=== PATIENT | male | born 1985 | race Caucasian/White ===

== ENCOUNTER 2016-12-02 17:16 | Inpatient (IN) | payer SELFPAY ==
[2016-12-02] MEDS ORDERED: Iohexol 240 (50 ml) PO STA (18:32)
[2016-12-02] MEDS ORDERED: Sodium Chloride 0.9% 1,000 ML IV ONE (18:32)
[2016-12-02 18:51] LABS: BASO % 0.3 % (0.0-2.0); EOS # 0.2 K/uL (0.0-0.7); EOS % 1.4 % (0.0-4.0); HEMOGLOBIN 13.9 g/dL (12.0-18.0); LYMPH # 3.2 K/uL (1.0-4.3); LYMPH % 30.1 % (20.0-40.0); MEAN CELL VOLUME 76.3 fL (80.0-94.0); MEAN CORPUSCULAR HEMOGLOBIN 25.4 pg (27.0-31.0); MEAN CORPUSCULAR HGB CONC 33.3 g/dL (33.0-37.0); MEAN PLATELET VOLUME 9.6 fL (7.2-11.7); MONO # 0.7 K/uL (0.0-0.8); MONO % 6.6 % (0.0-10.0); NEUT # 6.6 K/uL (1.8-7.0); NEUT % 61.6 % (50.0-75.0); NRBC % 0.3 % (0.0-2.0); RBC 5.47 Mil/uL (4.40-5.90); RED CELL DISTRIBUTION WIDTH 13.1 % (11.5-14.5); WHITE BLOOD COUNT 10.7 K/uL (4.8-10.8)
[2016-12-02 18:59] LABS: ALBUMIN 4.3 g/dL (3.5-5.0)
[2016-12-02 19:01] LABS: GFR AFRICAN-AMERICAN > 60; GFR NON-AFRICAN AMERICAN > 60
[2016-12-02 19:02] LABS: ALB/GLOB RATIO 1.3 (1.0-2.1); ALT/SGPT 40 U/L (21-72); AST/SGOT 20 U/L (17-59); BLOOD UREA NITROGEN 14 mg/dL (9-20); CALCIUM 8.4 mg/dl (8.6-10.4); LIPASE 57 U/L (23-300)
[2016-12-02] MEDS ORDERED: Iohexol 240 (50 ml) ONE (19:02)
[2016-12-02] MEDS ORDERED: Sodium Chloride 0.9% 1,000 ML ONE (19:02)
[2016-12-02 19:10] LABS: URINE BILIRUBIN NEGATIVE (NEGATIVE); URINE BLOOD NEGATIVE (NEGATIVE); URINE CLARITY Clear (Clear); URINE COLOR Yellow (YELLOW); URINE GLUCOSE (UA) NORMAL (Normal); URINE LEUKOCYTE ESTERASE NEG Leu/uL (Negative); URINE NITRATE NEGATIVE (NEGATIVE); URINE PROTEIN NEGATIVE (NEGATIVE); URINE UROBILINOGEN NORMAL mg/dL (0.2-1.0)
[2016-12-02] MEDS ORDERED: Iohexol 300 100 ML IJ ONE (20:00)
--- NOTE | 2016-12-02 21:02 | CT ---
EXAM: CT Abdomen and Pelvis With Intravenous Contrast CLINICAL HISTORY: 31 years old, male; Pain; Abdominal pain; Generalized; Additional info: Abd pain TECHNIQUE: Axial computed tomography images of the abdomen and pelvis with intravenous contrast. This CT exam was performed using one or more of the following dose reduction techniques: automated exposure control, adjustment of the mA and/or kV according to patient size, and/or use of iterative reconstruction technique. Coronal and sagittal reformatted images were created and reviewed. CONTRAST: 100 mL of omnipaque 300 administered intravenously. COMPARISON: No relevant prior studies available. FINDINGS: Lower thorax: Minimal atelectasis/scarring. ABDOMEN: Liver: Minimal periportal edema. Gallbladder and bile ducts: No calcified stones. No ductal dilation. Pancreas: No ductal dilation. No mass. Spleen: No splenomegaly. Adrenals: No mass. Kidneys and ureters: No mass. No hydronephrosis. Stomach and bowel: No definite mural thickening. No obstruction. Appendix: Enlarged appendix, measuring up to 1.4 cm in diameter. Mucosal enhancement. Minimal stranding about appendix. PELVIS: Bladder: Unremarkable. Reproductive: Unremarkable as visualized. ABDOMEN and PELVIS: Intraperitoneal space: No significant fluid collection. No free air. Bones/joints: Degenerative changes of lower thoracic spine with indentation thecal sac/cord. No acute fracture. Soft tissues: Unremarkable. Vasculature: Unremarkable. No aneurysm. Lymph nodes: No pathologically enlarged lymph nodes. IMPRESSION: 1. Acute appendicitis. 2. Incidental/non-acute findings are described above.
--- NOTE | 2016-12-02 21:39 | C.PDOC ---
History Of Present Illness Pt has been c/o LLQ pain on/off for months. He states that today the pain "moved " to the RLQ. Time Seen by Provider: 12/02/16 18:20 Chief Complaint (Nursing): Abdominal Pain History Per: Patient Onset/Duration Of Symptoms: Days (1) Current Symptoms Are (Timing): Still Present Severity: Moderate Location Of Pain/Discomfort: RLQ Quality Of Discomfort: "Pain" Alleviating Factors: None Additional History Per: Prior Records Past Medical History Reviewed: Historical Data, Nursing Documentation, Vital Signs Vital Signs: Last Vital Signs Temp 98 F 12/02/16 18:50 Pulse 66 12/02/16 18:50 Resp 20 12/02/16 18:50 BP 124/82 12/02/16 18:50 Pulse Ox 99 12/02/16 18:50 - Medical History PMH: No Chronic Diseases Surgical History: No Surg Hx Family History: States: Unknown Family Hx - Social History Hx Tobacco Use: No Hx Alcohol Use: No Hx Substance Use: No Review Of Systems Except As Marked, All Systems Reviewed And Found Negative. Constitutional: Negative for: Fever, Weakness Cardiovascular: Negative for: Chest Pain Respiratory: Negative for: Shortness of Breath Gastrointestinal: Positive for: Abdominal Pain. Negative for: Vomiting, Diarrhea Genitourinary: Negative for: Dysuria Musculoskeletal: Negative for: Neck Pain, Back Pain Skin: Negative for: Rash Neurological: Negative for: Weakness, Numbness, Seizures, Altered Mental Status Physical Exam - Physical Exam Appears: Non-toxic, No Acute Distress Skin: Normal Color, Warm, Dry, No Rash Head: Atraumatic, Normacephalic Eye(s): bilateral: Normal Inspection, PERRL, EOMI Neck: Normal ROM, Supple Cardiovascular: Rhythm Regular Respiratory: Normal Breath Sounds, No Accessory Muscle Use Gastrointestinal/Abdominal: Soft, Tenderness (RLQ) Back: No CVA Tenderness, No Vertebral Tenderness Extremity: Normal ROM Neurological/Psych: Oriented x3, Normal Motor, Normal Sensation ED Course And Treatment - Laboratory Results Result Diagrams: 12/02/16 18:48 12/02/16 18:48 Lab Interpretation: No Acute Changes O2 Sat by Pulse Oximetry: 99 Pulse Ox Interpretation: Normal - CT Scan/US CT abd/pelv Other Rad Studies (CT/US): Read By Radiologist, Radiology Report Reviewed CT/US Interpretation: IMPRESSION: 1. Acute appendicitis. 2. Incidental/non- acute findings are described above. Progress - Interventions Interventions:: Observation, Intravenous fluid - Data Reviewed Data Reviewed: Lab, Diagnostic imaging, Old records - Patient Status Patient status: Partially improved - Continuity of Care Discussed patient case with:: Patient, Family-HIPPA compliant, ED Nurse Discussed pt. case with foreign law consultant/specialty: General Surgery - Patient Plan Patient Plan: Admission Disposition Discussed With : Shantel Esqueda Comment: She accepted pt on her service. Pt was also signed out to the surgerical resident Dr. Conti. Doctor Will See Patient In The: Hospital Counseled Patient/Family Regarding: Studies Performed, Diagnosis - Disposition Disposition: HOSPITALIZED Disposition Time: 21:42 Condition: FAIR - Clinical Impression Clinical Impression: Acute appendicitis
[2016-12-02] MEDS ORDERED: cefTRIAXone IV 1 gm in Dextros 50 ML IVPB ONE ×2 (21:42→22:02)
[2016-12-02] MEDS ORDERED: metroNIDAZOLE IV 500 mg/100 ml 500 MG/100 ML BAG IVPB STA (21:43)
[2016-12-02] MEDS ORDERED: metroNIDAZOLE IV 500 mg/100 ml 500 MG/100 ML BAG ONE (22:02)
--- NOTE | 2016-12-02 22:20 | CP.PCM.HP ---
History of Present Illness - History of Present Illness History of Present Illness: SURGERY NOT FOR DR. LOPEZ 31M presents with pain that started yesterday and starts pain was initially diffused and achy. He states the pain was not associated with nausea/vomiting, fevers or chills. He states he has had this type of pain before 3 months ago and months prior. He states he has not had anything to eat today and continues to complain of lower abdominal pain greatest in RLQ. PMH: denies PSH: denies Social: denies tobacco, alcohol, illicit drugs All: NKDA Present on Admission - Present on Admission Any Indicators Present on Admission: No Past Patient History - Past Social History Smoking Status: Never Smoked - PSYCHIATRIC Hx Substance Use: No Meds Allergies/Adverse Reactions: Allergies Allergy/AdvReac Type Severity Reaction Status Date / Time No Known Allergies Allergy Verified 12/02/16 17:24 Physical Exam - Constitutional Appears: Non-toxic, No Acute Distress, Other (uncomfortable) - Head Exam Head Exam: ATRAUMATIC - Respiratory Exam Respiratory Exam: Clear to Auscultation Bilateral, NORMAL BREATHING PATTERN - Cardiovascular Exam Cardiovascular Exam: REGULAR RHYTHM, +S1, +S2 - GI/Abdominal Exam GI & Abdominal Exam: Guarding, Soft, Tenderness (RLQ). absent: Distended, Firm , Rebound, Rigid - Neurological Exam Neurological exam: Alert, Oriented x3 - Psychiatric Exam Psychiatric exam: Normal Affect, Normal Mood - Skin Skin Exam: Dry, Intact, Normal Color, Warm Results - Vital Signs Recent Vital Signs: Last Vital Signs Temp 98 F 12/02/16 18:50 Pulse 66 12/02/16 18:50 Resp 20 12/02/16 18:50 BP 124/82 12/02/16 18:50 Pulse Ox 99 12/02/16 21:42 - Labs Result Diagrams: 12/02/16 18:48 12/02/16 18:48 Labs: Laboratory Results - last 24 hr 12/02/16 12/02/16 12/02/16 18:48 18:48 18:59 WBC 10.7 RBC 5.47 Hgb 13.9 Hct 41.7 MCV 76.3 L MCH 25.4 L MCHC 33.3 RDW 13.1 Plt Count 275 MPV 9.6 Neut % (Auto) 61.6 Lymph % (Auto) 30.1 [place] % (Auto) 6.6 Eos % (Auto) 1.4 Baso % (Auto) 0.3 Neut # 6.6 Lymph # 3.2 [place] # 0.7 Eos # 0.2 Baso # 0.0 Sodium 141 Potassium 3.9 Chloride 97 L Carbon Dioxide 28 Anion Gap 20 BUN 14 Creatinine 0.8 Est GFR ( Amer) > 60 Est GFR (Non-Af Amer) > 60 Random Glucose 85 Calcium 8.4 L Total Bilirubin 1.5 H AST 20 ALT 40 Alkaline Phosphatase 50 Total Protein 7.5 Albumin 4.3 Globulin 3.2 Albumin/Globulin Ratio 1.3 Lipase 57 Urine Color Yellow Urine Clarity Clear Urine pH 5.0 Ur Specific [place] 1.023 Urine Protein Negative Urine Glucose (UA) Normal Urine Ketones Negative Urine Blood Negative Urine Nitrate Negative Urine Bilirubin Negative Urine Urobilinogen Normal Ur Leukocyte Esterase Neg Urine WBC (Auto) < 1 Urine RBC (Auto) 2 Assessment & Plan - Assessment and Plan (Free Text) Assessment: 31M with acute appendicitis CT: acute appendicitis Plan: - NPO, Abx, IVF - Pain control, anti-emetic - Consent, Pre-op - coags, ekg, CXR - Booked for Lap appendectomy tomorrow morning Discussed with Dr. Dheeraj Joseph, PGY2
[2016-12-02] MEDS ORDERED: Morphine 4 MG/ML VIAL IVP PRN (22:25)
[2016-12-02] MEDS ORDERED: Piperacillin/Tazobact 3.375 GM in Sodium Chloride 100 ML IVPB SCH (22:30)
[2016-12-02 23:09] LABS: INR 1.3; PROTHROMBIN TIME 14.8 SECONDS (9.7-12.2)
[2016-12-03] MEDS: Dextrose 5%/0.45% NS 1,000 ML IV SCH ×4 (00:57→17:28)
[2016-12-03] MEDS: Piperacillin/Tazobact 3.375 GM in Sodium Chloride 100 ML IVPB SCH ×3 (05:38→17:29)
[2016-12-03 07:05] LABS: MEAN CELL VOLUME 76.5 fL (80.0-94.0); MEAN CORPUSCULAR HEMOGLOBIN 25.5 pg (27.0-31.0); MEAN CORPUSCULAR HGB CONC 33.3 g/dL (33.0-37.0); MEAN PLATELET VOLUME 10.1 fL (7.2-11.7); RBC 5.47 Mil/uL (4.40-5.90); RED CELL DISTRIBUTION WIDTH 13.4 % (11.5-14.5); WHITE BLOOD COUNT 7.4 K/uL (4.8-10.8)
[2016-12-03 07:06] LABS: ALB/GLOB RATIO 1.3 (1.0-2.1); ALBUMIN 4.1 g/dL (3.5-5.0); ALT/SGPT 35 U/L (21-72); AST/SGOT 22 U/L (17-59); BLOOD UREA NITROGEN 12 mg/dL (9-20); CALCIUM 8.8 mg/dl (8.6-10.4); GFR AFRICAN-AMERICAN > 60; GFR NON-AFRICAN AMERICAN > 60
[2016-12-03] MEDS ORDERED: ceFAZolin IV 1 gm in Dextrose 1 GM/50 ML BAG IVPB ONE (08:39)
[2016-12-03] MEDS ORDERED: Lactated Ringer's 1,000 ML IV ONE ×2 (08:55→09:45)
[2016-12-03] MEDS ORDERED: Propofol 10 mg/ml Inj (20 ML) ONE (09:02)
[2016-12-03] MEDS ORDERED: Midazolam 2 MG/2 ML VIAL ONE (09:02)
[2016-12-03] MEDS ORDERED: Neostigmine Methylsulfate 3mg/3ml Syringe IV ONE (10:11)
--- NOTE | 2016-12-03 10:39 | PCM.SURG1 ---
Surgeon's Initial Post Op Note - Surgeon's Notes Surgeon: Dr. Esqueda Coffee Weigher: Dr. Leal PGY-3, Dr. Chavez PGY-2 Type of Anesthesia: General Endo Pre-Operative Diagnosis: acute appendicitis Operative Findings: see operative report Post-Operative Diagnosis: acute appenditis Operation Performed: laparoscopic appendectomy Specimen/Specimens Removed: appendix Estimated Blood Loss: EBL {In ML}: 5 Blood Products Given: N/A Drains Used: No Drains Post-Op Condition: Good Date of Surgery/Procedure: 12/03/16 Time of Surgery/Procedure: 10:39
[2016-12-03] MEDS ORDERED: oxyCODONE 5 mg Immediate Release Tab PO PRN (10:41)
[2016-12-03] MEDS: HYDROmorphone 0.5 mg/0.5 ml ISec IVP PRN ×2 (11:06→12:23)
--- NOTE | 2016-12-03 19:08 | CARD ---
APPROVED REPORT EKG Measurement Heart [id number] <Conclusion> Sinus bradycardia with sinus arrhythmia Otherwise normal ECG
[2016-12-04] MEDS: Piperacillin/Tazobact 3.375 GM in Sodium Chloride 100 ML IVPB SCH ×3 (01:00→12:00)
[2016-12-04] MEDS: Dextrose 5%/0.45% NS 1,000 ML IV SCH (06:01)
--- NOTE | 2016-12-04 09:19 | CP.PCM.DIS ---
Provider - Provider Date of Admission: 12/02/16 22:12 Attending physician: Shantel Esqueda MD Time Spent in preparation of Discharge (in minutes): 20 Hospital Course - Lab Results Lab Results: Most Recent Lab Values WBC 7.4 K/uL (4.8-10.8) 12/03/16 06:44 RBC 5.47 Mil/uL (4.40-5.90) 12/03/16 06:44 Hgb 14.0 g/dL (12.0-18.0) 12/03/16 06:44 Hct 41.9 % (35.0-51.0) 12/03/16 06:44 MCV 76.5 fL (80.0-94.0) L 12/03/16 06:44 MCH 25.5 pg (27.0-31.0) L 12/03/16 06:44 MCHC 33.3 g/dL (33.0-37.0) 12/03/16 06:44 RDW 13.4 % (11.5-14.5) 12/03/16 06:44 Plt Count 273 K/uL (130-400) 12/03/16 06:44 MPV 10.1 fL (7.2-11.7) 12/03/16 06:44 Neut % (Auto) 61.6 % (50.0-75.0) 12/02/16 18:48 Lymph % (Auto) 30.1 % (20.0-40.0) 12/02/16 18:48 [place] % (Auto) 6.6 % (0.0-10.0) 12/02/16 18:48 Eos % (Auto) 1.4 % (0.0-4.0) 12/02/16 18:48 Baso % (Auto) 0.3 % (0.0-2.0) 12/02/16 18:48 Neut # 6.6 K/uL (1.8-7.0) 12/02/16 18:48 Lymph # 3.2 K/uL (1.0-4.3) 12/02/16 18:48 [place] # 0.7 K/uL (0.0-0.8) 12/02/16 18:48 Eos # 0.2 K/uL (0.0-0.7) 12/02/16 18:48 Baso # 0.0 K/uL (0.0-0.2) 12/02/16 18:48 PT 14.8 SECONDS (9.7-12.2) H 12/02/16 22:58 INR 1.3 12/02/16 22:58 APTT 32 SECONDS (21-34) 12/02/16 22:58 Sodium 142 mmol/L (132-148) 12/03/16 06:44 Potassium 3.7 mmol/L (3.6-5.2) 12/03/16 06:44 Chloride 99 mmol/L (98-107) 12/03/16 06:44 Carbon Dioxide 28 mmol/L (22-30) 12/03/16 06:44 Anion Gap 18 (10-20) 12/03/16 06:44 BUN 12 mg/dL (9-20) 12/03/16 06:44 Creatinine 0.9 MG/DL (0.8-1.5) 12/03/16 06:44 Est GFR ( Amer) > 60 12/03/16 06:44 Est GFR (Non-Af Amer) > 60 12/03/16 06:44 Random Glucose 106 mg/dL (75-110) 12/03/16 06:44 Calcium 8.8 mg/dl (8.6-10.4) 12/03/16 06:44 Total Bilirubin 2.3 mg/dL (0.2-1.3) H 12/03/16 06:44 AST 22 U/L (17-59) 12/03/16 06:44 ALT 35 U/L (21-72) 12/03/16 06:44 Alkaline Phosphatase 55 U/L (38-126) 12/03/16 06:44 Total Protein 7.1 g/dL (6.3-8.3) 12/03/16 06:44 Albumin 4.1 g/dL (3.5-5.0) 12/03/16 06:44 Globulin 3.1 gm/dL (2.2-3.9) 12/03/16 06:44 Albumin/Globulin Ratio 1.3 (1.0-2.1) 12/03/16 06:44 Lipase 57 U/L (23-300) 12/02/16 18:48 Urine Color Yellow (YELLOW) 12/02/16 18:59 Urine Clarity Clear (Clear) 12/02/16 18:59 Urine pH 5.0 (5.0-8.0) 12/02/16 18:59 Ur Specific [place] 1.023 (1.003-1.030) 12/02/16 18:59 Urine Protein Negative mg/dL (NEGATIVE) 12/02/16 18:59 Urine Glucose (UA) Normal mg/dL (Normal) 12/02/16 18:59 Urine Ketones Negative mg/dL (NEGATIVE) 12/02/16 18:59 Urine Blood Negative (NEGATIVE) 12/02/16 18:59 Urine Nitrate Negative (NEGATIVE) 12/02/16 18:59 Urine Bilirubin Negative (NEGATIVE) 12/02/16 18:59 Urine Urobilinogen Normal mg/dL (0.2-1.0) 12/02/16 18:59 Ur Leukocyte Esterase Neg Helga/uL (Negative) 12/02/16 18:59 Urine WBC (Auto) < 1 /hpf (0-5) 12/02/16 18:59 Urine RBC (Auto) 2 /hpf (0-3) 12/02/16 18:59 - Hospital Course Hospital Course: 31M presented to ED on 12/02 w/ complaints of abdominal pain. CT scan demonstrated acute appendicitis. Patient was taken to OR on 12/03/16 for laparoscopic appendectomy. Patient tolerated procedure well. He is tolerating PO intake this morning. Reports mild abdominal pain along surgical incision sites. Patient is cleared for discharge from surgical stand point. Above is a brief description of patient's hospital course, for more details please refer to medical records. Discharge Exam - Head Exam Head Exam: ATRAUMATIC - Eye Exam Eye Exam: Normal appearance - ENT Exam ENT Exam: Mucous Membranes Moist - Respiratory Exam Respiratory Exam: NORMAL BREATHING PATTERN - Cardiovascular Exam Cardiovascular Exam: +S1, +S2 - GI/Abdominal Exam GI & Abdominal Exam: Soft, Tenderness - Neurological Exam Neurological exam: Alert, Oriented x3 - Psychiatric Exam Psychiatric exam: Normal Mood - Skin Skin Exam: Dry, Intact, Warm Discharge Plan - Follow Up Plan Condition: GOOD Disposition: HOME/ ROUTINE Additional Instructions: Follow up with Dr. Esqueda in surgery clinic in 1 week OK to remove band-aids on Tuesday Steri-strips underneath band-aids will fall off on their own OK to shower, keep surgical incision sites clean and dry Do not submerge in water for at least 2 weeks
[2016-12-04 12:09] LABS: BASO % 0.1 % (0.0-2.0); EOS % 0.5 % (0.0-4.0); HEMOGLOBIN 13.8 g/dL (12.0-18.0); LYMPH # 3.2 K/uL (1.0-4.3); LYMPH % 32.6 % (20.0-40.0); MEAN CELL VOLUME 76.6 fL (80.0-94.0); MEAN CORPUSCULAR HEMOGLOBIN 25.4 pg (27.0-31.0); MEAN CORPUSCULAR HGB CONC 33.2 g/dL (33.0-37.0); MEAN PLATELET VOLUME 10.4 fL (7.2-11.7); MONO % 9.8 % (0.0-10.0); NEUT # 5.6 K/uL (1.8-7.0); RBC 5.42 Mil/uL (4.40-5.90); RED CELL DISTRIBUTION WIDTH 13.1 % (11.5-14.5); WHITE BLOOD COUNT 9.8 K/uL (4.8-10.8)
[2016-12-04 12:19] LABS: GFR AFRICAN-AMERICAN > 60; GFR NON-AFRICAN AMERICAN > 60
[2016-12-04 12:20] LABS: BLOOD UREA NITROGEN 8 mg/dL (9-20)
[2016-12-04 16:17] VITALS: BP 109/73; PULSE 56; RESP 20; TEMP 98.7; O2SAT 95
--- NOTE | 2016-12-05 13:21 | OP ---
PROCEDURE DATE: 12/03/2016 PREOPERATIVE DIAGNOSIS: Acute appendicitis. POSTOPERATIVE DIAGNOSIS: Acute appendicitis. PROCEDURE: Laparoscopic appendectomy. SURGEON: Dr. Esqueda. STUDENT MINISTRY PASTOR: Dr. Leal and Dr. Chavez. TYPE OF ANESTHESIA: General. ESTIMATED BLOOD LOSS: 5 mL. DESCRIPTION OF PROCEDURE: With the patient in the supine position under adequate general anesthesia, the abdomen was prepped and draped in the usual sterile manner. Veress needle puncture was performed at the umbilicus with insufflation to 15 cm water pressure CO2 and a 10 mm laparoscopic trocar was inserted via an infraumbilical incision. Under direct vision, 5 and 12 mm trocars were inserted in the left lower quadrant. The cecum was identified and with gentle elevation, the appendix was identified and delivered into view. The appendix was noted to be acutely inflamed and moderately dilated. There was no evidence of perforation. The mesoappendix was also thickened. The mesoappendix was dissected then divided with an Endo SERG stapler. The appendix itself was amputated close to the cecum also using the Endo SERG stapler, the appendix was placed in a specimen retrieval bag and removed via the 12 mm port site. The right lower quadrant was examined for hemostasis and suctioned and the pneumoperitoneum was released and the trocars were removed. The umbilical and 12 mm port sites were closed with [id number] fascial sutures of 0-Vicryl. All incisions were closed with 4-0 Monocryl subcuticular sutures and dry sterile dressings were applied. The patient tolerated the procedure well and transferred to the recovery room in stable condition. Shantel Esqueda MD [facility]
== END 2016-12-04 17:35 | disposition home or self-care (01) | DRG 343 ==
LOC: C.ER 17:16 → C.9E 22:12 → C.3T 22:43
PROVIDERS: ADMIT Specialist; ATTEND Specialist
PROC: 0DTJ4ZZ Resection of Appendix, Percutaneous Endoscopic Approach (ICD-10-PCS; principal; 2016-12-03 13:00)
DX: K35.80 Unspecified acute appendicitis (principal)